=== PATIENT | male | born 1970 | race Caucasian/White ===

== ENCOUNTER → 2016-08-11 | Outpatient (CLI) | payer MEDICAID ==
[2016-08-11 11:28] LABS: CH 31.2; CHCM 34.4; HCT 48.6 % (39.0-53.0); HDW 2.61; HGB 16.5 gm/dL (13.0-17.5); MCH 30.9 pg (25.0-35.0); MCHC 33.9 g/dL (31.0-37.0); MCV 91.2 fL (80.0-100.0); Mean Platelet Volume 7.6; RBC 5.33 m/uL (4.30-5.90); RDW 13.1 % (11.5-15.5); WBC 8.4 k/uL (3.8-10.6)
[2016-08-11 11:31] LABS: Appearance,Urine Clear (Clear); Bacteria,Urine Rare /hpf; Bilirubin,Urine Negative (Negative); Glucose,Urine (UA) 3+ (Negative); Ketones,Urine 1+ (Negative); Leukocyte Esterase,Urine Negative (Negative); Mucus,Urine Rare /hpf; Nitrite,Urine Negative (Negative); Particle Count 740; Protein,Urine 1+ (Negative); RBC,Urine <1 /hpf (0-5); Specific Gravity,Urine 1.015 (1.001-1.035); Squamous Epithelial Cell,Urine <1 /hpf (0-4); UA Billing (MACRO vs. MICRO) MICRO; Urobilinogen,Urine <2.0 mg/dL (<2.0)
[2016-08-11 11:48] LABS: ALT 51 U/L (21-72); AST 30 U/L (17-59); Alkaline Phosphatase 93 U/L (38-126); Anion Gap 14 mmol/L; Blood Urea Nitrogen 22 mg/dL (9-20); Calcium 10.7 mg/dL (8.4-10.2); Carbon Dioxide 25 mmol/L (22-30); Chloride 101 mmol/L (98-107); Cholesterol 317 mg/dL (<200); Glucose 212 mg/dL (74-99); HDL Cholesterol 43 mg/dL (40-60); Non-African American GFR(MDRD) >60 (>60 ml/min/1.73 sqM); Potassium 4.6 mmol/L (3.5-5.1); Sodium 140 mmol/L (137-145); Total Bilirubin 0.6 mg/dL (0.2-1.3); Total Protein 7.7 g/dL (6.3-8.2)
[2016-08-11 12:17] LABS: Prostate Specific Antigen 0.77 ng/mL (0.00-4.00)
[2016-08-11 12:48] LABS: Triglycerides 963 mg/dL (<150)
== END | disposition home or self-care (01) ==
LOC: LABMAIN 10:52
PROVIDERS: ATTEND Family Medicine
DX: E11.9 Type 2 diabetes mellitus without complications (principal); E78.5 Hyperlipidemia, unspecified; E29.1 Testicular hypofunction
CPT/HCPCS: 36415; 80053; 80061; 81001; 84153; 84270; 85027

== ENCOUNTER → 2016-09-15 | Outpatient (CLI) | payer MEDICAID ==
[2016-09-15 11:06] LABS: Anion Gap 15 mmol/L; Blood Urea Nitrogen 18 mg/dL (9-20); Calcium 9.7 mg/dL (8.4-10.2); Carbon Dioxide 22 mmol/L (22-30); Chloride 102 mmol/L (98-107); Glucose 220 mg/dL (74-99); HDL Cholesterol 44 mg/dL (40-60); Non-African American GFR(MDRD) >60 (>60 ml/min/1.73 sqM); Potassium 4.9 mmol/L (3.5-5.1); Sodium 139 mmol/L (137-145)
[2016-09-15 11:10] LABS: Hemoglobin A1C 9.2 % (4.2-6.1)
[2016-09-15 11:16] LABS: Cholesterol 350 mg/dL (<200); Triglycerides 642 mg/dL (<150)
== END | disposition home or self-care (01) ==
LOC: LABMAIN 10:15
PROVIDERS: ATTEND Family Medicine
DX: E78.5 Hyperlipidemia, unspecified (principal); E11.9 Type 2 diabetes mellitus without complications
CPT/HCPCS: 36415; 80048; 80061; 82040; 83036; 84270; 84403

== ENCOUNTER → 2016-12-23 | Outpatient (CLI) | payer MEDICAID ==
[2016-12-23 10:30] LABS: Basophils % (A) 1 %; CH 31.7; Eosinophils # (A) 0.2 k/uL (0-0.7); Eosinophils % (A) 2 %; HDW 2.66; HGB 15.1 gm/dL (13.0-17.5); Luc # (Auto) 0.12; Luc % (Auto) 2; Lymphocytes # (A) 2.2 k/uL (1.0-4.8); Lymphocytes % (A) 31 %; MCH 30.8 pg (25.0-35.0); MCHC 32.8 g/dL (31.0-37.0); MCV 93.9 fL (80.0-100.0); Mean Platelet Volume 7.7; Monocytes # (A) 0.4 k/uL (0-1.0); Monocytes % (A) 5 %; Neutrophils # (A) 4.4 k/uL (1.3-7.7); Neutrophils % (A) 60 %; RDW 13.5 % (11.5-15.5); WBC 7.3 k/uL (3.8-10.6); WBC (Perox) 7.13
[2016-12-23 10:39] LABS: ALT 41 U/L (21-72); AST 29 U/L (17-59); Anion Gap 9 mmol/L; Blood Urea Nitrogen 15 mg/dL (9-20); Calcium 9.2 mg/dL (8.4-10.2); Carbon Dioxide 26 mmol/L (22-30); Chloride 106 mmol/L (98-107); Cholesterol 220 mg/dL (<200); Glucose 174 mg/dL (74-99); HDL Cholesterol 42 mg/dL (40-60); Non-African American GFR(MDRD) >60 (>60 ml/min/1.73 sqM); Potassium 4.4 mmol/L (3.5-5.1); Sodium 141 mmol/L (137-145); Triglycerides 400 mg/dL (<150)
[2016-12-23 19:49] LABS: Hemoglobin A1C 7.6 % (4.2-6.1)
== END | disposition home or self-care (01) ==
LOC: LABMAIN 09:59
PROVIDERS: ATTEND Family Medicine
DX: E11.65 Type 2 diabetes mellitus with hyperglycemia (principal); E78.5 Hyperlipidemia, unspecified
CPT/HCPCS: 36415; 80048; 80061; 83036; 84450; 84460; 85025

== ENCOUNTER → 2017-04-09 | Outpatient (CLI) | payer MEDICAID ==
[2017-04-09 08:56] LABS: CH 31.9; CHCM 34.4; HCT 46.5 % (39.0-53.0); HDW 2.57; HGB 15.7 gm/dL (13.0-17.5); MCH 31.5 pg (25.0-35.0); MCHC 33.7 g/dL (31.0-37.0); MCV 93.3 fL (80.0-100.0); Mean Platelet Volume 8.9; RBC 4.98 m/uL (4.30-5.90); RDW 13.5 % (11.5-15.5); WBC 8.4 k/uL (3.8-10.6)
[2017-04-09 09:07] LABS: Hemoglobin A1C 6.5 % (4.2-6.1)
[2017-04-09 09:16] LABS: Cholesterol 190 mg/dL (<200); HDL Cholesterol 35 mg/dL (40-60)
== END | disposition home or self-care (01) ==
LOC: LABMAIN 08:26
PROVIDERS: ATTEND Family Medicine
DX: E11.65 Type 2 diabetes mellitus with hyperglycemia (principal); E78.5 Hyperlipidemia, unspecified
CPT/HCPCS: 36415; 80061; 83036; 85027

== ENCOUNTER 2018-01-16 16:44 | Emergency (ER) | payer MEDICAID ==
[2018-01-16 16:49] VITALS: BP 145/88; PULSE 91; RESP 18; TEMP 97.4
--- NOTE | 2018-01-16 17:23 | ED ---
Skin/Abscess/FB HPI - General Chief complaint: Skin/Abscess/Foreign Body Stated complaint: abscess Time Seen by Provider: 01/16/18 16:46 Source: patient, RN notes reviewed Mode of arrival: ambulatory Limitations: no limitations - History of Present Illness Initial comments: 47-year-old male presents emergency Department chief complaint of abscess on his back. Patient states that has been enlarging for a while but states that turned red and more painful recently. Patient reports no fevers or chills. he has had issues with this in the past. Patient has NO KNOWN DRUG ALLERGIES. - Related Data Home Medications Medication Instructions Recorded Confirmed Citalopram Hydrobromide [CeleXA] 20 mg PO DAILY 08/23/15 10/16/16 ALPRAZolam [Xanax] 0.25 mg PO DAILY 10/16/16 10/16/16 Pravastatin Sodium [Pravachol] 40 mg PO DAILY 10/16/16 10/16/16 Vardenafil HCl [Levitra] 10 mg PO DAILY 10/16/16 10/16/16 metFORMIN HCL [Glucophage] 500 mg PO BID 10/16/16 10/16/16 Previous Rx's Medication Instructions Recorded Sulfamethox-Tmp 800-160Mg [Bactrim 1 each PO Q12HR #20 tab 01/16/18 Ds] Allergies Allergy/AdvReac Type Severity Reaction Status Date / Time No Known Allergies Allergy Verified 01/16/18 16:50 Review of Systems ROS Statement: Those systems with pertinent positive or pertinent negative responses have been documented in the HPI. ROS Other: All systems not noted in ROS Statement are negative. Past Medical History Past Medical History: Diabetes Mellitus, Hyperlipidemia, Hypertension History of Any Multi-Drug Resistant Organisms: None Reported Past Surgical History: Appendectomy, Hernia Repair, Orthopedic Surgery Past Psychological History: Depression Smoking Status: Never smoker Past Alcohol Use History: None Reported Past Drug Use History: None Reported General Exam Limitations: no limitations General appearance: alert, in no apparent distress Respiratory exam: Present: normal lung sounds bilaterally. Absent: respiratory distress, wheezes, rales, rhonchi, stridor Cardiovascular Exam: Present: regular rate, normal rhythm, normal heart sounds. Absent: systolic murmur, diastolic murmur, rubs, gallop, clicks Skin exam: Present: warm, dry, other (There is approximately area of 3 cm with induration and swelling noted to the right low back) Course Vital Signs 01/16/18 16:46 Temperature 97.4 F L Pulse Rate 91 Respiratory 18 Rate Blood Pressure 145/88 O2 Sat by Pulse 97 Oximetry Procedures - Incision & Drainage Consent Obtained: verbal consent Indication: Infected sebaceous cyst Site: other (Right low back) Size (cm): 3 Anesthetic Used: lidocaine 1%, without epi Amount (mLs): 5 I&D Cleaning Method: Betadine Scalpel Used: #15 I&D Drainage Obtained: Other ( the sebaceous cyst was removed with thick white discharge) Packing: Iodoform, Other (3 sutures were placed at the edge of the incision and packing placed in the middle 4-0 Ethilon was used) Culture Obtained?: No Patient Tolerated Procedure: well, no complications Medical Decision Making - Medical Decision Making 47-year-old male present emergency department for infected sebaceous cyst. This was open, removed and patient was placed on antibiotics for infection. Return parameters were discussed. Disposition Clinical Impression: Infected sebaceous cyst Disposition: HOME SELF-CARE Condition: Stable Instructions: Cyst (ED) Additional Instructions: Please return to the Emergency Department if symptoms worsen or any other concerns. Prescriptions: Sulfamethox-Tmp 800-160Mg [Bactrim Ds] 1 each PO Q12HR #20 tab Is patient prescribed a controlled substance at d/c from ED?: No Referrals: Elliott Ng DO [Primary Care Provider] - 1-2 days Time of Disposition: 17:23
== END 2018-01-16 17:44 | disposition home or self-care (01) ==
LOC: EC 16:44
DX: L72.3 Sebaceous cyst (principal); E11.9 Type 2 diabetes mellitus without complications; E78.5 Hyperlipidemia, unspecified; I10 Essential (primary) hypertension; F32.9 Major depressive disorder, single episode, unspecified; Z79.84 Long term (current) use of oral hypoglycemic drugs; Z79.899 Other long term (current) drug therapy
CPT/HCPCS: 10060; 99282

== ENCOUNTER → 2018-02-23 | Outpatient (CLI) | payer MEDICAID ==
[2018-02-23 09:46] LABS: HCT 45.5 % (39.0-53.0); HGB 14.9 gm/dL (13.0-17.5); MCH 29.6 pg (25.0-35.0); MCHC 32.8 g/dL (31.0-37.0); MCV 90.2 fL (80.0-100.0); Mean Platelet Volume 7.5; Platelet Count 179 k/uL (150-450); RBC 5.04 m/uL (4.30-5.90); RDW 13.4 % (11.5-15.5); WBC 6.8 k/uL (3.8-10.6)
[2018-02-23 09:51] LABS: Appearance,Urine Clear (Clear); Bilirubin,Urine Negative (Negative); Blood,Urine Negative (Negative); Color,Urine Yellow; Glucose,Urine (UA) Negative (Negative); Ketones,Urine Negative (Negative); Leukocyte Esterase,Urine Negative (Negative); Nitrite,Urine Negative (Negative); PH, Urine 5.5 (5.0-8.0); Protein,Urine Negative (Negative); Specific Gravity,Urine 1.021 (1.001-1.035); Urobilinogen,Urine <2.0 mg/dL (<2.0)
[2018-02-23 10:15] LABS: ALT 36 U/L (21-72); AST 28 U/L (17-59); Alkaline Phosphatase 51 U/L (38-126); Anion Gap 9 mmol/L; Blood Urea Nitrogen 18 mg/dL (9-20); Calcium 8.8 mg/dL (8.4-10.2); Carbon Dioxide 23 mmol/L (22-30); Chloride 109 mmol/L (98-107); Cholesterol 191 mg/dL (<200); Glucose 123 mg/dL (74-99); HDL Cholesterol 33 mg/dL (40-60); Potassium 4.6 mmol/L (3.5-5.1); Sodium 141 mmol/L (137-145); Total Bilirubin 0.3 mg/dL (0.2-1.3); Total Protein 6.7 g/dL (6.3-8.2); Triglycerides 435 mg/dL (<150)
[2018-02-23 10:43] LABS: Prostate Specific Antigen 0.58 ng/mL (0.00-4.00)
[2018-02-24 12:20] LABS: Hemoglobin A1C 6.7 % (4.0-6.0)
== END | disposition home or self-care (01) ==
LOC: LABMAIN 09:26
PROVIDERS: ATTEND Family Medicine
DX: Z00.00 Encounter for general adult medical examination without abnormal findings (principal); E11.9 Type 2 diabetes mellitus without complications
CPT/HCPCS: 36415; 80053; 80061; 81003; 82043; 82570; 83036; 84153; 84443; 85027

== ENCOUNTER 2018-07-14 08:17 | Day surgery (SDC) | payer MEDICAID ==
[2018-07-10 11:53] VITALS: BMI 28.0
[~2018-07-14 08:17] MED LIST: LACTATED RINGERS 1,000 ML IV SCH
[2018-07-14 08:52] VITALS: RESP 16; TEMP 97.7
[2018-07-14 08:56] LABS: Glucose,Whole Blood 120 mg/dL (75-99)
[2018-07-14] MEDS ORDERED: PROPOFOL 10 MG/ML 20 ML VIAL IV ONE (09:00)
[2018-07-14] MEDS ORDERED: LIDOCAINE 1% INJ 10MG/ML (20 ML MDV) ONE (09:00)
[2018-07-14] MEDS ORDERED: LACTATED RINGERS 1,000 ML IV ONE (09:00)
[2018-07-14 09:03] LABS: Glucose,Whole Blood 124 mg/dL (75-99)
[2018-07-14 10:18] VITALS: BP 120/75; PULSE 66
--- NOTE | 2018-07-14 11:04 | P.PCN ---
Date of Procedure: 07/14/18 Procedure(s) Performed: Procedure: Colonoscopy and polypectomy with injection of Spot to localize a flat polypoid lesion in the distal right colon. Preoperative diagnosis: Screening for neoplasia. Postoperative diagnosis: 1. Sigmoid diverticulosis with no evidence of acute diverticulitis. 2. Flat polypoid lesion in the distal right colon close to the hepatic flexure snared and injected with 3 cc of Spot to localize it. Preparation: HalfLytely prep. Sedation: Was provided by anesthesia. Brief clinical history: The patient is a 48-year-old male who is scheduled for this evaluation for screening for neoplasia age being his risk factor. He has no abdominal complaints, bleeding or anemia. Procedure: With the patient on his left lateral decubitus position and after informed consent and adequate sedation, the perianal area was inspected and it did not show any fissures or fistulas. There were no masses felt on digital rectal examination. The Olympus CF H1 90L video colonoscope was then inserted in the rectum in the usual fashion and advanced to the cecum. There was a medium-sized flat polypoid lesion in the distal right colon close to the hepatic flexure which I was able to snare in part, thus obtaining generous sampling of that lesion but did not completely remove it because of how broadly attached it is to the wall. I used Spot to localize it by injecting a total of 3 mL. In the sigmoid, there were several diverticular orifices seen scattered but I saw no evidence of acute diverticulitis or strictures. Due to problems with the suction and air channels of the endoscope, I had to replace the endoscope and use a different scope after the initial polypectomy. I used the scope to suction the polyp pains the tip of the scope and withdraw it to recover the polyp. No other polyps or tumors were seen. I retroflexed the endoscope in the rectum before the endoscope was withdrawn. The patient tolerated the procedure well. Plan: The patient was reassured. I discussed with his . We would make additional plans based on the pathology results. I will keep you updated on his progress.
== END 2018-07-14 10:53 | disposition home or self-care (01) ==
LOC: ORWHC2ENDO 08:17
DX: Z12.11 Encounter for screening for malignant neoplasm of colon (principal); D12.2 Benign neoplasm of ascending colon; K57.30 Diverticulosis of large intestine without perforation or abscess without bleeding; E11.9 Type 2 diabetes mellitus without complications; I10 Essential (primary) hypertension; E78.5 Hyperlipidemia, unspecified; F32.9 Major depressive disorder, single episode, unspecified; Z79.899 Other long term (current) drug therapy
CPT/HCPCS: 88305; 45385; 45381; J2001; J2704

== ENCOUNTER → 2018-08-17 | Outpatient (CLI) | payer MEDICAID ==
[2018-08-17 10:57] LABS: Basophils % (A) 0 %; Eosinophils # (A) 0.2 k/uL (0-0.7); Eosinophils % (A) 2 %; HCT 47.2 % (39.0-53.0); HGB 15.7 gm/dL (13.0-17.5); Lymphocytes # (A) 2.3 k/uL (1.0-4.8); Lymphocytes % (A) 32 %; MCH 30.6 pg (25.0-35.0); MCHC 33.4 g/dL (31.0-37.0); MCV 91.6 fL (80.0-100.0); Mean Platelet Volume 8.1; Monocytes # (A) 0.3 k/uL (0-1.0); Monocytes % (A) 4 %; Neutrophils # (A) 4.4 k/uL (1.3-7.7); Neutrophils % (A) 60 %; Platelet Count 177 k/uL (150-450); RBC 5.15 m/uL (4.30-5.90); RDW 13.3 % (11.5-15.5); WBC 7.3 k/uL (3.8-10.6)
[2018-08-18 11:46] LABS: Anion Gap 7.4 mmol/L (4.00-12.00); Calcium 9.2 mg/dL (8.7-10.3); Carbon Dioxide 26.6 mmol/L (21.6-31.8); LDL Cholesterol,Calculated 91.2 mg/dL (0.0-131.0); Potassium 4.6 mmol/L (3.5-5.5); VLDL Calculation 58.8 mg/dL (5.00-40.00)
[2018-08-18 12:05] LABS: Hemoglobin A1C 6.8 % (4.0-6.0)
== END | disposition home or self-care (01) ==
LOC: EC 07:25 → LABMAIN 10:46
PROVIDERS: ATTEND Family Medicine
DX: E78.5 Hyperlipidemia, unspecified (principal); E11.9 Type 2 diabetes mellitus without complications
CPT/HCPCS: 36415; 80048; 80061; 83036; 84450; 84460; 85025